=== PATIENT | female | born 1950 | race Asian ===

== ENCOUNTER 2020-12-13 12:38 | Emergency (ER) | payer MEDICARE ==
[2020-12-13 12:46] VITALS: BP 170/79
--- NOTE | 2020-12-13 14:14 | ER Document Report ---
ED Medical Screen (RME) - General Chief Complaint: Skin Problem Stated Complaint: SKIN ISSUE Primary Care Provider: ELIDA SILVESTRE MD [Primary Care Provider] - Follow up as needed - HPI Notes: 12/13/20 14:02 Rapid Medical Exam HPI: 70yo female presents to the ER c/o scalp infections. pt says this is secondary to ''mites'' in her home for 3 years. she is using a ''metal lice'' comb to try and remove them. also c/o bilat ear pain and admits using q tips. has been treated by her doctor with medication to kill lice, ect w/o relief. also using topical steroids on scalp w/o relief. Physical Exam: GENERAL: Well-appearing, well-nourished and in no acute distress. HEAD: Atraumatic, normocephalic. ENT: Moist mucous membranes. RESP: Respirations even and unlabored CV- Regular rate. NEURO: No focal neurological deficits. Moves all extremities spontaneously and on command. My involvement in this patients care was limited to a rapid initial assessment. A comprehensive ED assessment and evaluation of the patient, analysis of test results, treatment, and completion of the medical decision making process will be performed by other ER providers. - Related Data Allergies/Adverse Reactions: No Known Allergies Allergy (Verified 12/13/20 14:01) Physical Exam - Vital signs Vitals: Temp Pulse Resp BP Pulse Ox 98.9 F 96 19 170/79 H 99 12/13/20 12:43 12/13/20 12:43 12/13/20 12:43 12/13/20 12:43 12/13/20 12:43 Course - Vital Signs Vital signs: Temp Pulse Resp BP Pulse Ox 98.9 F 96 19 170/79 H 99 12/13/20 12:43 12/13/20 12:43 12/13/20 12:43 12/13/20 12:43 12/13/20 12:43 Doctor's Discharge - Discharge Referrals: ELIDA SILVESTRE MD [Primary Care Provider] - Follow up as needed
[2020-12-13] MEDS ORDERED: SULFAMETHOXAZOLE/TRIMETHOPRIM 800-160 MG TABLET PO ONE (17:04)
--- NOTE | 2020-12-13 17:11 | ER Document Report ---
Entered by DAVE ARAYA SCRIBE 12/13/20 0025 Acting as scribe for:JORDYN ROBLES DO ED General - General Chief Complaint: Abscess Stated Complaint: SKIN ISSUE Time Seen by Provider: 12/13/20 16:17 Primary Care Provider: ELIDA SILVESTRE MD [HONORARY] - Follow up as needed Information source: Patient Notes: This 70 year old female patient presents to the emergency department today with complaints of possible infection to abscesses on her scalp. Patient states she has been dealing with mites in her house for x3 years and states they are on her scalp. Patient states she combed her hair with a old clover lice comb and thinks this infected the abscesses on her scalp. Patient reports history of DM and HTN. - Related Data Allergies/Adverse Reactions: No Known Allergies Allergy (Verified 12/13/20 14:01) Home Medications: bp medication Past Medical History - General Information source: Patient - Social History Smoking Status: Unknown if Ever Smoked Family History: Reviewed & Not Pertinent Patient has homicidal ideation: No - Past Medical History Cardiac Medical History: Reports: Hx Hypertension Endocrine Medical History: Reports: Hx Diabetes Mellitus Type 2 Review of Systems - Review of Systems Constitutional: No symptoms reported EENT: No symptoms reported Cardiovascular: No symptoms reported Respiratory: No symptoms reported Gastrointestinal: No symptoms reported Genitourinary: No symptoms reported Female Genitourinary: No symptoms reported Musculoskeletal: No symptoms reported Skin: See HPI, Other - abscesses scattered over scalp Hematologic/Lymphatic: No symptoms reported Neurological/Psychological: No symptoms reported -: Yes All other systems reviewed and negative Physical Exam - Vital signs Vitals: Temp Pulse Resp BP Pulse Ox 98.9 F 96 19 170/79 H 99 12/13/20 12:43 12/13/20 12:43 12/13/20 12:43 12/13/20 12:43 12/13/20 12:43 - General General appearance: Appears well, Alert - HEENT Eyes: Normal Pupils: PERRL Notes: Head: Abscesses and pustules scattered all over the scalp to the hairline. Erythema and small eschars. No bleeding, No pus oozing. Tenderness with palpation. - Respiratory Respiratory status: No respiratory distress Chest status: Nontender Breath sounds: Normal Chest palpation: Normal - Cardiovascular Rhythm: Regular Heart sounds: Normal auscultation Murmur: No - Abdominal Inspection: Normal Distension: No distension Bowel sounds: Normal Tenderness: Nontender - Extremities General upper extremity: Normal inspection, Normal ROM General lower extremity: Normal inspection, Normal ROM. No: Edema - Neurological Neuro grossly intact: Yes Cognition: Normal Orientation: AAOx4 [place] Coma Scale Eye Opening: Spontaneous [place] Coma Scale Verbal: Oriented [place] Coma Scale Motor: Obeys Commands [place] Coma Scale Total: 15 Speech: Normal Sensory: Normal - Psychological Associated symptoms: Normal affect, Normal mood - Skin Skin Temperature: Warm Skin Moisture: Dry Skin irregularity: Abscess Location of irregularity: Scalp Course - Re-evaluation Re-evalutation: 12/13/20 17:04 MDM Eccentric 70 year old with htn, dm and abcesses on scalp for about 3 years. Appears as MRSA would. Will treat with sulfa and encourage hibiclens wash q 2 weeks along with pcp referral. Unfortunately has no pcp reportedly. - Vital Signs Vital signs: Temp Pulse Resp BP Pulse Ox 98.9 F 96 19 170/79 H 99 12/13/20 14:02 12/13/20 12:43 12/13/20 12:43 12/13/20 12:43 12/13/20 12:43 - Laboratory Results Laboratory Results Interpreted: 12/13/20 16:55 POC Glucose 133 H Critical Laboratory Results Reviewed: No Critical Results - Radiology Results Critical Radiology Results Reviewed: No Critical Results Discharge - Discharge Clinical Impression: MRSA (methicillin resistant Staphylococcus aureus) Abscess of skin Qualifiers: Site of cutaneous abscess: head Qualified Code(s): L02.811 - Cutaneous abscess of head [any part, except face] Condition: Stable Disposition: HOME, SELF-CARE Instructions: Abscess ([facility]), Family Physicians / Practices, MRSA Cellulitis ([facility]), Trimethoprim-Sulfa ([facility]) Additional Instructions: Take the medicine as directed. Keep your blood sugar less than 150. Finish the antibiotic. Take tylenol or ibuprofen for pain. Use a hibiclens wash - this may be purchased in the pharmacy - every 2 weeks (not more frequently than this) on your skin in the shower. Please return here for fever, persistent vomiting, other problems or other concerns. Call a primary doctor to schedule routine follow up. Your medicine has been sent to [facility] pharmacy. Prescriptions: Sulfamethoxazole/Trimethoprim [Bactrim Ds Tablet] 1 each PO BID #42 tablet Referrals: ELIDA SILVESTRE MD [HONORARY] - Follow up as needed I personally performed the services described in the documentation, reviewed and edited the documentation which was dictated to the scribe in my presence, and it accurately records my words and actions.
== END 2020-12-13 17:23 | disposition home or self-care (01) ==
LOC: ER 12:38
DX: L02.811 Cutaneous abscess of head [any part, except face] (principal); A49.02 Methicillin resistant Staphylococcus aureus infection, unspecified site; E11.9 Type 2 diabetes mellitus without complications; I10 Essential (primary) hypertension; Z79.899 Other long term (current) drug therapy
CPT/HCPCS: 99283; 82962; A9270